=== PATIENT | male | born 1980 | race Caucasian/White ===

== ENCOUNTER 2017-06-03 09:18 | Emergency (ER) | payer OTHER ==
[~2017-06-03] VITALS: Ht 177.8 cm; Wt 180.0 kg
[2017-06-03 09:19] VITALS: BP 167/98; PULSE 99; RESP 22; TEMP 97.7; O2SAT 98
[2017-06-03] MEDS ORDERED: SODIUM CHLOR 0.9% 1000 ML INJ 1,000 ML IV SCH (09:37)
[2017-06-03 09:41] VITALS: BP 141/77; PULSE 100; RESP 19; TEMP 98.7; O2SAT 97
[2017-06-03] MEDS ORDERED: methylPREDNISolone SOD SUCC 125 MG/2 ML VIAL IV PUSH ONE (09:45)
[2017-06-03] MEDS ORDERED: SODIUM CHLORIDE 0.9% FLUSH 10 ML FLUSH IVF PRN (09:45)
--- NOTE | 2017-06-03 10:05 | RADRPT ---
EXAM DATE/TIME: 06/03/2017 09:51 [place] COMPARISON: No previous studies available for comparison. INDICATIONS : Cough, congestion, short of breath. MEDICAL HISTORY : None. SURGICAL HISTORY : None. ENCOUNTER: Initial ACUITY: 1 week PAIN SCORE: 0/10 LOCATION: Bilateral chest FINDINGS: A single view of the chest demonstrates the lungs to be symmetrically aerated without evidence of mas s, infiltrate or effusion. The cardiomediastinal contours are unremarkable. Osseous structures are intact. CONCLUSION: No acute disease. pS Anne MD on June 03, 2017 at 10:03 Board Certified Radiologist. This report was verified electronically.
[2017-06-03 10:16] LABS: BASOPHIL # 0.1 TH/MM3 (0-0.2); BASOPHIL % 0.9 % (0.0-2.0); EOSINOPHIL # 0.2 TH/MM3 (0-0.4); EOSINOPHIL % 2.5 % (0.0-4.0); HEMATOCRIT 46.1 % (39.0-51.0); HEMOGLOBIN 16.1 GM/DL (13.0-17.0); LYMPH % 16.2 % (9.0-44.0); LYMPHOCYTE # 1.2 TH/MM3 (1.0-4.8); MEAN CELL VOLUME 86.4 FL (80.0-100.0); MEAN CORPUSCULAR HEMOGLOBIN 30.2 PG (27.0-34.0); MEAN CORPUSCULAR HGB CONC 34.9 % (32.0-36.0); MEAN PLATELET VOLUME 7.5 FL (7.0-11.0); MONOCYTE # 0.9 TH/MM3 (0-0.9); NEUT % 68.4 % (16.0-70.0); PLATELET COUNT 207 TH/MM3 (150-450); RED BLOOD COUNT 5.33 MIL/MM3 (4.50-5.90); RED CELL DISTRIBUTION WIDTH 13.2 % (11.6-17.2); WHITE BLOOD COUNT 7.3 TH/MM3 (4.0-11.0)
[2017-06-03 10:32] LABS: BICARBONATE 26.7 MEQ/L (21.0-32.0); CALCIUM 8.7 MG/DL (8.5-10.1); CREATININE 0.86 MG/DL (0.60-1.30)
[2017-06-03] MEDS: RESP: ALBUTEROL 2.5 MG/IPRATROPIUM 0.5 MG NEB (SCH) INH ×2 (10:32→10:33)
[2017-06-03] MEDS ORDERED: PRED20 PO (11:16)
[2017-06-03] MEDS ORDERED: ALBU6.7H INH (11:16)
[2017-06-03] MEDS ORDERED: DOXY100C PO (11:16)
--- NOTE | 2017-06-03 11:17 | PD ---
HPI Chief Complaint: Cold / Flu Symptoms Time Seen by Provider: 09:31 Travel History International Travel<30 days: No Contact w/Intl Traveler<30days: No Traveled to known affect area: No History of Present Illness HPI 37-year-old male complains of shortness of breath and cold spells dyspnea. He has a history of asthma. Duration of symptoms within about a week. No chest pain or nausea vomiting. Frequent productive cough reported. PFSH Past Medical History Asthma: Yes Sleep Apnea: Yes Tetanus Vaccination: Unknown Influenza Vaccination: No Past Surgical History Tonsillectomy: Yes Social History Alcohol Use: No Tobacco Use: No Substance Use: Yes (OCC MARIJUANA) Allergies-Medications (Allergen,Severity, Reaction): Coded Allergies: clarithromycin (Verified Allergy, Intermediate, 06/03/17) Reported Meds & Prescriptions Reported Meds & Active Scripts Active No Active Prescriptions or Reported Medications Review of Systems Except as stated in HPI: all other systems reviewed are Neg General / Constitutional: Positive: Fever Respiratory: Positive: Cough, Shortness of Breath, Wheezing Physical Exam Narrative GENERAL: 37 yo M, WNWD, mild distress SKIN: Warm and dry. HEAD: Atraumatic. Normocephalic. EYES: Pupils equal and round. No scleral icterus. No injection or drainage. ENT: No nasal bleeding or discharge. Mucous membranes pink and moist. NECK: Trachea midline. No JVD. CARDIOVASCULAR: Tachycardia. Regular. RESPIRATORY: Wheezing present bilaterally. Minimal tachypnea. GASTROINTESTINAL: Abdomen soft, non-tender, nondistended. Hepatic and splenic margins not palpable. MUSCULOSKELETAL: Extremities without clubbing, cyanosis, or edema. No obvious deformities. NEUROLOGICAL: Awake and alert. No obvious cranial nerve deficits. Motor grossly within normal limits. Five out of 5 muscle strength in the arms and legs. Normal speech. PSYCHIATRIC: Appropriate mood and affect; insight and judgment normal. Data Data Last Documented VS Vital Signs Date Time Temp Pulse Resp B/P (MAP) Pulse Ox O2 Delivery O2 Flow Rate FiO2 06/03/17 09:41 98.7 100 19 141/77 (98) 97 Room Air VS reviewed Orders Orders Complete Blood Count With Diff (06/03/17 09:31) Basic Metabolic Panel (Bmp) (06/03/17 09:31) Iv Access Insert/Monitor (06/03/17 09:31) Ecg Monitoring (06/03/17 09:31) Oximetry (06/03/17 09:31) Chest, Single Ap (06/03/17 09:31) Sodium Chloride 0.9% Flush (Ns Flush) (06/03/17 09:45) Methylprednisolone So Succ Inj (Solumedr (06/03/17 09:45) Albuterol-Ipratropium Neb (Duoneb Neb) (06/03/17 09:45) Sodium Chlor 0.9% 1000 Ml Inj (Ns 1000 M (06/03/17 09:37) Labs Laboratory Tests Test 06/03/17 09:50 White Blood Count 7.3 TH/MM3 Red Blood Count 5.33 MIL/MM3 Hemoglobin 16.1 GM/DL Hematocrit 46.1 % Mean Corpuscular Volume 86.4 FL Mean Corpuscular Hemoglobin 30.2 PG Mean Corpuscular Hemoglobin Concent 34.9 % Red Cell Distribution Width 13.2 % Platelet Count 207 TH/MM3 Mean Platelet Volume 7.5 FL Neutrophils (%) (Auto) 68.4 % Lymphocytes (%) (Auto) 16.2 % Monocytes (%) (Auto) 12.0 % Eosinophils (%) (Auto) 2.5 % Basophils (%) (Auto) 0.9 % Neutrophils # (Auto) 5.0 TH/MM3 Lymphocytes # (Auto) 1.2 TH/MM3 Monocytes # (Auto) 0.9 TH/MM3 Eosinophils # (Auto) 0.2 TH/MM3 Basophils # (Auto) 0.1 TH/MM3 CBC Comment DIFF FINAL Differential Comment Blood Urea Nitrogen 13 MG/DL Creatinine 0.86 MG/DL Random Glucose 106 MG/DL Calcium Level 8.7 MG/DL Sodium Level 138 MEQ/L Potassium Level 3.9 MEQ/L Chloride Level 104 MEQ/L Carbon Dioxide Level 26.7 MEQ/L Anion Gap 7 MEQ/L Estimat Glomerular Filtration Rate 100 ML/MIN MDM Medical Decision Making Medical Screen Exam Complete: Yes Emergency Medical Condition: Yes Differential Diagnosis asthma, viral syndrome, influenza, pneumonia Narrative Course CBC & BMP Diagram 06/03/17 09:50 Calcium Level 8.7 Last 24 hours Impressions Chest X-Ray 06/03/17930 Signed Impressions: Service Date/Time: Saturday, June 03, 2017 09:51 - CONCLUSION: No acute disease. Sp Anne MD DuoNebs and Solu-Medrol given. Pt reports feeling much better. Prescriptions as below Diagnosis Primary Impression: Bronchitis Additional Impression: Asthma Qualified Codes: J45.998 - Other asthma Referrals: Primary Care Physician Med/Other Pt SpecificInfo: Prescription(s) given Scripts Albuterol 6.7 GM Inh (Proventil Hfa 6.7 GM Inh) 90 Mcg/Act Aer 2 PUFF INH Q6H Y for SHORTNESS OF BREATH, #1 INHALER 0 Refills Prov: Sunny Hernandez MD 06/03/17 Prednisone (Prednisone) 20 Mg Tab 40 MG PO DAILY for 4 Days, #8 TAB 0 Refills Take 40 mg (2 tablets) daily for 5 days Prov: Sunny Hernandez MD 06/03/17 Doxycycline Hyclate (Doxycycline Hyclate) 100 Mg Cap 100 MG PO BID for Infection, #20 CAP 0 Refills Prov: Sunny Hernandez MD 06/03/17 Disposition: 01 DISCHARGE HOME Condition: Stable Sunny Hernandez MD Jun 03, 2017 11:17
[2017-06-03 11:35] VITALS: BP 149/74
== END 2017-06-03 11:36 | disposition home or self-care (01) ==
LOC: NEPD 09:18
DX: J45.909 Unspecified asthma, uncomplicated (principal)
CPT/HCPCS: 71045; 80048; 85025; 94640; 94664; 96361; 96374; 99284; J2930; J7030